=== PATIENT | male | born 1955 | race Caucasian/White ===

== ENCOUNTER 2018-05-04 16:39 | Observation (INO) ==
[2018-05-04 17:25] LABS: Baso % (Auto) 0.3 % (0.0-2.0); Eos % (Auto) 0.7 % (0.0-4.0); Hemoglobin 14.7 gm/dL (13.0-17.0); Lymph # (Auto) 1.7 th/mm3 (1.0-4.8); Lymph % (Auto) 24.5 % (9.0-44.0); Mean Corpuscular HGB Conc 33.3 % (32.0-36.0); Mean Corpuscular Volume 87.1 fL (80.0-100.0); Mean Platelet Volume 8.8 fL (7.0-11.0); Mono # (Auto) 0.5 th/mm3 (0.0-0.9); Mono % (Auto) 7.4 % (0.0-8.0); Neut # (Auto) 4.6 th/mm3 (1.8-7.7); Neut % (Auto) 67.1 % (16.0-70.0); Platelet Count 223 th/mm3 (150-450); Red Blood Count 5.05 mil/mm3 (4.50-5.90); Red Cell Distribution Width 14.8 % (11.6-17.2); White Blood Count 6.9 th/mm3 (4.0-11.0)
[2018-05-04 17:34] LABS: Activated Partial Thrombo Time 32.1 sec (24.3-30.1); INR 1.1 Ratio; Prothrombin Time 11.1 sec (9.8-11.6)
--- NOTE | 2018-05-04 17:38 | ED ---
HPI General Chief Complaint: Chest Pain Stated Complaint: chest pain/evac Time Seen by Provider: 05/04/18 17:06 Source: patient History of Present Illness HPI narrative: 62-year-old male presents with central chest pain and shortness of breath with exertion. He states he has been experiencing this intermittently over the past 6 months. He states the past couple of days have gotten worse. He denies prior workup for this. He denies taking an aspirin yet. He denies other modifying factors. His pain is currently resolved. He denies prior cardiac workup or following with a design analyst. complaint: chest pain Complete Quality Measures for STEMI Alert Patients Onset (ago): day(s) Duration: intermittent Onset: during exertion Pain location: left chest Severity: mild Quality: dull Pain radiation: none Relieving factors: rest Exacerbating factors: exertion Treatments prior to arrival chest pain: none Related Data Home Medications Medication Instructions Recorded Confirmed buspirone 5 mg PO BID 05/04/18 05/04/18 sertraline 50 mg PO DAILY 05/04/18 05/04/18 Allergies Allergy/AdvReac Type Severity Reaction Status Date / Time No Known Allergies Allergy Unverified 05/04/18 16:54 Review of Systems ROS Unobtainable All other systems reviewed negative except as stated in HPI [facility] Medical History Medical History Anxiety (Acute) COPD (chronic obstructive pulmonary disease) (Acute) Depression (Acute) Surgical History Surgical History H/O hand surgery (Acute) Hx of tonsillectomy (Acute) Social History Social History Substance History: No History of Abuse Second Hand Smoke Exposure: Yes Smoking Status: Current some day smoker Tobacco Type: Cigars How Often Do You Have a Drink Containing Alcohol: 2 to 4 times a month Recent Travel in [facility] within the Last 8 Weeks: No Recent Out of Country Travel within the Last 8 Weeks: No Immunization History Tetanus Immunization: >5 Years Hx Influenza Vaccine This Season: No Exam Narrative Exam Narrative: GENERAL: 62 y/o male in no apparent distress SKIN: Focused skin assessment warm/dry. HEAD: Atraumatic. Normocephalic. EYES: Pupils equal and round. No scleral icterus. No injection or drainage. ENT: No nasal bleeding or discharge. Mucous membranes pink and moist. NECK: Trachea midline. CARDIOVASCULAR: Regular rate and rhythm. RESPIRATORY: No accessory muscle use. Clear to auscultation. Breath sounds equal bilaterally. GASTROINTESTINAL: Abdomen soft, non-tender, nondistended. MUSCULOSKELETAL: No obvious deformities. No clubbing. No cyanosis. NEUROLOGICAL: Awake and alert. No obvious cranial nerve deficits. Motor grossly within normal limits. Normal speech Course Consultations Consultation #1: The patient's case including history, pertinent physical examination findings, and laboratory studies were discussed with Dr. Paredes. It was agreed that the patient would be admitted to the hospitalist service. Time: 20:24 Initial Documented Vital Signs Pulse Rate 103 H 05/04/18 16:55 Respiratory Rate 20 05/04/18 16:55 Blood Pressure 145/67 H 05/04/18 16:55 Pulse Oximetry 96 05/04/18 16:55 Last Documented Vital Signs Temperature 98.0 F 05/05/18 08:00 Pulse Rate 84 05/05/18 08:00 Respiratory Rate 16 05/05/18 08:00 Blood Pressure 117/66 05/05/18 08:00 Pulse Oximetry 97 05/05/18 08:00 Sign Out Sign Out Data: Patient Sign Out occurred on 05/04/18 at 19:19. Patient's care was discussed, and care was transferred from Bridgette Wood MD to Marilin Luna MD. Sign Out Comment: ct pending, will need admit for chest pain after results Last updated by Bridgette Wood MD at 05/04/18 18:51 Post-Handoff Eval: During the course of the patient's emergency department visit, the patient's history, examination, and differential diagnosis were reviewed with the patient. The patient was placed on a seismic prospecting supervisor with oximetry and frequent blood pressure monitoring. The patient had IV access obtained and blood work sent for analysis. The patient's case was checked out to me by Dr. Wood. Please see her initial history and physical. The patient's case was checked out to me at the conclusion of her shift. A CTA of the chest was ordered to both evaluate for possible underlying pulmonary embolism as a cause of the patient's chest pain and shortness of breath with exertion. The CTA came back as showing no evidence of pulmonary embolism, 7.1 cm left upper lobe mass consistent with bronchogenic carcinoma. No appreciable adenopathy, severe emphysematous changes. The patient will be admitted to the hospital for continued evaluation and treatment of chest pain, chest pressure, shortness of breath with exertion and underlying lung mass. The patient's results were discussed with the patient, including the plan of care. I explained that further testing and/ or monitoring is indicated based on the patient's history, examination, and/ or laboratory findings. Therefore, I recommended admission for additional evaluation. The patient expressed understanding and was agreeable with this plan. The patient was admitted to the hospital in guarded condition and sent to a bed under the care of [facility] service. Medical Decision Making MDM Narrative Medical decision making narrative: Will check blood work, imaging and dose with aspirin and nitroglycerin as needed and reevaluate Differential Diagnosis Differential Diagnosis: cardiac, musculoskeletal, gastritis Lab Data Lab results reviewed: Yes I reviewed the patient's lab results. Result diagrams: 05/05/18 04:20 05/05/18 04:20 Lab Results 05/04/18 05/04/18 05/04/18 Range/Units 17:16 17:16 17:16 WBC 6.9 (4.0-11.0) th/mm3 RBC 5.05 (4.50-5.90) mil/mm3 Hgb 14.7 (13.0-17.0) gm/dL Hct 44.0 (39.0-51.0) % MCV 87.1 (80.0-100.0) fL MCH 29.0 (27.0-34.0) pg MCHC 33.3 (32.0-36.0) % RDW 14.8 (11.6-17.2) % Plt Count 223 (150-450) th/mm3 MPV 8.8 (7.0-11.0) fL Neut % (Auto) 67.1 (16.0-70.0) % Lymph % (Auto) 24.5 (9.0-44.0) % Brantley % (Auto) 7.4 (0.0-8.0) % Eos % (Auto) 0.7 (0.0-4.0) % Baso % (Auto) 0.3 (0.0-2.0) % Neut # (Auto) 4.6 (1.8-7.7) th/mm3 Lymph # (Auto) 1.7 (1.0-4.8) th/mm3 Brantley # (Auto) 0.5 (0.0-0.9) th/mm3 Eos # (Auto) 0.0 (0.0-0.4) th/mm3 Baso # (Auto) 0.0 (0.0-0.2) th/mm3 WBC Differential . Differential Comment Auto diff final PT 11.1 (9.8-11.6) sec INR 1.1 Ratio APTT 32.1 H (24.3-30.1) sec D-Dimer Quant (PE/DVT) (0.00-0.50) mg/L FEU Sodium 141 (136-145) meq/L Potassium 4.0 (3.5-5.1) meq/L Chloride 105 (98-107) meq/L Carbon Dioxide 27.3 (21.0-32.0) meq/L Anion Gap 9 (5-15) meq/L BUN 11 (7-18) mg/dL Creatinine 0.95 (0.60-1.30) mg/dL Estimated GFR 80 L (>89) mL/min Random Glucose 120 H (74-106) mg/dL Calcium 9.0 (8.5-10.1) mg/dL Magnesium 2.2 (1.5-2.5) mg/dL Total Bilirubin 0.3 (0.2-1.0) mg/dL AST 16 (15-37) U/L ALT 21 (12-78) U/L Alkaline Phosphatase 116 (45-117) U/L Total Creatine Kinase 99 (39-308) U/L Troponin I Less than 0.02 L (0.02-0.05) ng/mL B-Natriuretic Peptide (0-100) pg/mL Total Protein 7.7 (6.4-8.2) g/dL Albumin 3.6 (3.4-5.0) g/dL Lipase 100 (73-393) U/L 05/04/18 05/04/18 05/05/18 Range/Units 17:16 17:16 04:20 WBC 7.1 (4.0-11.0) th/mm3 RBC 4.93 (4.50-5.90) mil/mm3 Hgb 14.1 (13.0-17.0) gm/dL Hct 43.0 (39.0-51.0) % MCV 87.2 (80.0-100.0) fL MCH 28.7 (27.0-34.0) pg MCHC 32.9 (32.0-36.0) % RDW 14.7 (11.6-17.2) % Plt Count 196 (150-450) th/mm3 MPV 8.7 (7.0-11.0) fL Neut % (Auto) 58.3 (16.0-70.0) % Lymph % (Auto) 30.3 (9.0-44.0) % Brantley % (Auto) 9.5 H (0.0-8.0) % Eos % (Auto) 1.5 (0.0-4.0) % Baso % (Auto) 0.4 (0.0-2.0) % Neut # (Auto) 4.1 (1.8-7.7) th/mm3 Lymph # (Auto) 2.1 (1.0-4.8) th/mm3 Brantley # (Auto) 0.7 (0.0-0.9) th/mm3 Eos # (Auto) 0.1 (0.0-0.4) th/mm3 Baso # (Auto) 0.0 (0.0-0.2) th/mm3 WBC Differential . Differential Comment Auto diff final PT (9.8-11.6) sec INR Ratio APTT (24.3-30.1) sec D-Dimer Quant (PE/DVT) 0.29 (0.00-0.50) mg/L FEU Sodium (136-145) meq/L Potassium (3.5-5.1) meq/L Chloride (98-107) meq/L Carbon Dioxide (21.0-32.0) meq/L Anion Gap (5-15) meq/L BUN (7-18) mg/dL Creatinine (0.60-1.30) mg/dL Estimated GFR (>89) mL/min Random Glucose (74-106) mg/dL Calcium (8.5-10.1) mg/dL Magnesium (1.5-2.5) mg/dL Total Bilirubin (0.2-1.0) mg/dL AST (15-37) U/L ALT (12-78) U/L Alkaline Phosphatase (45-117) U/L Total Creatine Kinase (39-308) U/L Troponin I (0.02-0.05) ng/mL B-Natriuretic Peptide 7 (0-100) pg/mL Total Protein (6.4-8.2) g/dL Albumin (3.4-5.0) g/dL Lipase (73-393) U/L 05/05/18 Range/Units 04:20 WBC (4.0-11.0) th/mm3 RBC (4.50-5.90) mil/mm3 Hgb (13.0-17.0) gm/dL Hct (39.0-51.0) % MCV (80.0-100.0) fL MCH (27.0-34.0) pg MCHC (32.0-36.0) % RDW (11.6-17.2) % Plt Count (150-450) th/mm3 MPV (7.0-11.0) fL Neut % (Auto) (16.0-70.0) % Lymph % (Auto) (9.0-44.0) % Brantley % (Auto) (0.0-8.0) % Eos % (Auto) (0.0-4.0) % Baso % (Auto) (0.0-2.0) % Neut # (Auto) (1.8-7.7) th/mm3 Lymph # (Auto) (1.0-4.8) th/mm3 Brantley # (Auto) (0.0-0.9) th/mm3 Eos # (Auto) (0.0-0.4) th/mm3 Baso # (Auto) (0.0-0.2) th/mm3 WBC Differential Differential Comment PT (9.8-11.6) sec INR Ratio APTT (24.3-30.1) sec D-Dimer Quant (PE/DVT) (0.00-0.50) mg/L FEU Sodium 141 (136-145) meq/L Potassium 3.7 (3.5-5.1) meq/L Chloride 106 (98-107) meq/L Carbon Dioxide 24.9 (21.0-32.0) meq/L Anion Gap 10 (5-15) meq/L BUN 13 (7-18) mg/dL Creatinine 0.97 (0.60-1.30) mg/dL Estimated GFR 78 L (>89) mL/min Random Glucose 96 (74-106) mg/dL Calcium 9.0 (8.5-10.1) mg/dL Magnesium (1.5-2.5) mg/dL Total Bilirubin 0.5 (0.2-1.0) mg/dL AST 15 (15-37) U/L ALT 17 (12-78) U/L Alkaline Phosphatase 103 (45-117) U/L Total Creatine Kinase (39-308) U/L Troponin I (0.02-0.05) ng/mL B-Natriuretic Peptide (0-100) pg/mL Total Protein 7.1 D (6.4-8.2) g/dL Albumin 3.3 L (3.4-5.0) g/dL Lipase (73-393) U/L Imaging Data Attestation: I personally reviewed and interpreted this imaging study as follows : Radiologist's impression: ITS Impressions Chest X-Ray 05/04/18 17:07 CONCLUSION: Left apical opacity as described above. Neoplasm is not excluded. CT scan is recommended for further evaluation if clinically indicated. Chest CTA 05/04/18 17:51 CONCLUSION: 1. No pulmonary emboli. 2. 7.1 cm left upper lobe mass consistent with bronchogenic carcinoma. No appreciable adenopathy. 3. Severe emphysematous changes. Discharge Plan Discharge Disposition Patient Disposition: 30 Still Patient Discharge Details Discharge Problem: Chest pain Physicians Team ED Provider: Marilin Luna Primary Care Provider: Primary Care Maribell Wood Attending Provider: Frida Lancaster Other Providers: Gaston Feldman Discharge Interventions Interventions: ED Discharge Assessment Last Done: 05/04/18 22:27 Status ED Status: Left Department Discharge Information Discharge Date/Time: 05/04/18 22:28
--- NOTE | 2018-05-04 17:45 | XR ---
EXAM DATE: 05/04/2018 5:41 PM EDT AGE/SEX: 62 years / Male INDICATIONS: Short of breath, chest pain. CLINICAL DATA: This is the patient's initial encounter. Patient reports that signs and symptoms have been present for 1 day and indicates a pain score of 3/10. MEDICAL/SURGICAL HISTORY: None. None. COMPARISON: No prior exams available for comparison. FINDINGS: There is increased opacity in the left apex. This is atypical for pneumonia and underlying mass lesio n is not excluded. CT scan is recommended for further evaluation if clinically indicated. No pleural effusions are identified. The cardiac silhouette is normal in transverse diameter. CONCLUSION: Left apical opacity as described above. Neoplasm is not excluded. CT scan is recommended for further evaluation if clinically indicated. Electronically signed by: Eros Zarate MD 05/04/2018 5:43 PM EDT
[2018-05-04 17:52] LABS: Alanine Aminotransferase 21 U/L (12-78); Albumin 3.6 g/dL (3.4-5.0); Anion Gap 9 meq/L (5-15); Aspartate Aminotransferase 16 U/L (15-37); Blood Urea Nitrogen 11 mg/dL (7-18); Carbon Dioxide 27.3 meq/L (21.0-32.0); Chloride 105 meq/L (98-107); Glomerular Filtration Rate 80 mL/min (>89); Glucose,Random 120 mg/dL (74-106); Lipase 100 U/L (73-393); Magnesium 2.2 mg/dL (1.5-2.5); Sodium 141 meq/L (136-145)
[2018-05-04 17:56] LABS: Alkaline Phosphatase 116 U/L (45-117); Total Protein 7.7 g/dL (6.4-8.2)
[2018-05-04 18:00] LABS: Creatine Kinase 99 U/L (39-308)
[2018-05-04] MEDS ORDERED: Bisacodyl 10 MG Supp RECTAL PRN (21:16)
[2018-05-04] MEDS ORDERED: Temazepam 15 MG Capsule PO PRN (21:16)
--- NOTE | 2018-05-04 21:26 | ECG ---
Date Performed: 05/04/2018 Time Performed: 16:57:24 PTAGE: 62 years EKG: SINUS TACHYCARDIA WITH SHORT MD INTERVAL ABNORMAL RHYTHM ECG NO PREVIOUS TRACING DOCTOR: Luis Gaston Interpretating Date/Time 05/04/2018 21:26:12
--- NOTE | 2018-05-05 04:35 | P.HPIM ---
History of Present Illness Primary Care Physician: No Primary Care Physician History of Present Illness: 62-year-old male with a history of depression, anxiety, tobacco abuse who follows at the [place] [facility], presents with a 6 month history of gradually worsening dull substernal nonradiating chest pressure with exertion. Worsening over the past several days, now with only moderate increase in activity. Patient reports chronic shortness of breath, does not feel that this has worsened significantly.. Patient denies any history of heart disease. Depression and anxiety Patient reports chronic shortness of breath, thinks he has COPD. Right hand tendon surgery Left facial surgery One half pack per day since his teenager years Family history reviewed with patient and found to be currently noncontributory. - Inpatient Certification If this patient has been admitted as an Inpatient: I certify that the inpatient services were ordered in accordance with Medicare regulations governing the order. This includes certification that hospital inpatient services are reasonable and necessary and in the case of services not specified as inpatient-only under 42 CFR 419.22(n), that they are appropriately provided as inpatient services in accordance to with the 2-midnight benchmark under 43 CFR 412.3(e) Review of Systems All other systems reviewed negative except as stated in HPI PMFSH - History History Provided By: Patient - Medical History Medical History: Medical History (Last Updated 05/04/18 @ 23:07 by Annemarie Bundy RN) Anxiety COPD (chronic obstructive pulmonary disease) Depression - Surgical History Surgical History: Surgical History (Last Updated 05/04/18 @ 23:07 by Annemarie Bundy RN) H/O hand surgery Hx of tonsillectomy - Tobacco History Second Hand Smoke Exposure: Yes Tobacco Use In Past 30 Days: Yes Smoking Status: Current some day smoker Tobacco Type: Cigars - Alcohol History How Often Do You Have a Drink Containing Alcohol: 2 to 4 times a month - Substance Use History Substance History: No History of Abuse - Travel History Recent Travel in the [place] Within the Last 8 Weeks: No Recent Travel Out of the Country Within the Last 8 Weeks: No - Immunization History Tetanus Immunization: >5 Years Hx Influenza Vaccine This Season: No Medications and Allergies Active Medications: Active Medications Al Hydroxide/Mg Hydroxide (Milk Of Doris Liq) 30 ml PO Q12H PRN PRN Reason: Mild Constipation Albuterol (Duoneb Neb (Tomas)) 1 ampul NEB Q6HR NEB TOMAS Last Admin: 05/05/18 03:48 Dose: Not Given Azithromycin (Zithromax) 500 mg PO DAILY TOMAS Stop: 05/07/18 09:01 Bisacodyl (Dulcolax Supp) 10 mg RECTAL DAILY PRN PRN Reason: SEVERE CONSITIPATION Ipratropium Elliott (Atrovent Neb) 0.5 mg NEB Q6HR NEB PRN PRN Reason: SHORTNESS OF BREATH Lactulose (Lactulose Liq) 30 ml PO DAILY PRN PRN Reason: SEVERE CONSITIPATION Prednisone (Deltasone) 40 mg PO DAILY [facility] Sennosides (Senokot) 17.2 mg PO Q12H PRN PRN Reason: Moderate Constipation Sodium Chloride (Ns Flush) 2 ml IV.FLUSH UNSCH PRN PRN Reason: FLUSH AFTER USING IV ACCESS Sodium Chloride (Ns Flush) 2 ml IV.FLUSH BID TOMAS Sodium Chloride (Ns Flush) 2 ml IV.FLUSH PRN PRN PRN Reason: FLUSH AFTER USING IV ACCESS Temazepam (Restoril) 15 mg PO HS PRN PRN Reason: INSOMNIA Allergies Allergy/AdvReac Type Severity Reaction Status Date / Time No Known Allergies Allergy Unverified 05/04/18 16:54 Home Medications Medication Instructions Recorded Confirmed Type buspirone 5 mg PO BID 05/04/18 05/04/18 History sertraline 50 mg PO DAILY 05/04/18 05/04/18 History Exam Vital signs: Vital Signs 05/04/18 16:55 05/04/18 18:03 05/04/18 18:14 Temperature Pulse Rate 103 H 102 H 97 H Respiratory Rate 20 19 17 Blood Pressure 145/67 H 145/67 H 120/62 Pulse Oximetry 96 94 L 98 05/04/18 20:15 05/04/18 21:43 05/04/18 21:51 Temperature Pulse Rate 86 87 Respiratory Rate 18 18 Blood Pressure 130/72 122/63 Pulse Oximetry 97 97 05/04/18 23:02 05/05/18 00:00 05/05/18 03:21 Temperature 98.1 F 98.0 F 97.7 F Pulse Rate 96 H 96 H 83 Respiratory Rate 18 16 18 Blood Pressure 142/72 H 116/68 102/55 L Pulse Oximetry 96 95 93 L 05/05/18 03:42 05/05/18 03:51 Temperature Pulse Rate 83 95 H Respiratory Rate 18 Blood Pressure Pulse Oximetry Intake & Output 05/04/18 05/04/18 05/05/18 06:59 18:59 06:59 Weight 70.76 kg 70.76 kg Other: Date of Last Bowel Movement 05/04/18 Weight On Admission 70.76 kg Narrative: GENERAL: Lying in bed. Appears comfortable. Alert and oriented 3. SKIN: Warm and dry. HEAD: Atraumatic. Normocephalic. EYES: Pupils equal and round. No scleral icterus. No injection or drainage. ENT: No nasal bleeding or discharge. Mucous membranes pink and moist. NECK: Trachea midline. No JVD. CARDIOVASCULAR: Regular rate and rhythm. RESPIRATORY: No accessory muscle use. Wheezing on forced expiration. Breath sounds equal bilaterally. GASTROINTESTINAL: Abdomen soft, non-tender, nondistended. Hepatic and splenic margins not palpable. MUSCULOSKELETAL: Extremities without clubbing, cyanosis, or edema. No obvious deformities. NEUROLOGICAL: Awake and alert. No obvious cranial nerve deficits. Motor grossly within normal limits. Five out of 5 muscle strength in the arms and legs. Normal speech. PSYCHIATRIC: Appropriate mood and affect; insight and judgment normal. Results - Labs CBC & Chem 7: 05/04/18 17:16 05/04/18 17:16 Labs: Short CBC 05/04/18 Range/Units 17:16 WBC 6.9 (4.0-11.0) th/mm3 Hgb 14.7 (13.0-17.0) gm/dL Hct 44.0 (39.0-51.0) % Plt Count 223 (150-450) th/mm3 [facility] 05/04/18 17:16 Sodium 141 Potassium 4.0 Chloride 105 Carbon Dioxide 27.3 BUN 11 Creatinine 0.95 Calcium 9.0 Cardiac Enzymes 05/04/18 Range/Units 17:16 Total Creatine Kinase 99 (39-308) U/L Troponin I Less than 0.02 L (0.02-0.05) ng/mL Liver Function 05/04/18 Range/Units 17:16 Total Bilirubin 0.3 (0.2-1.0) mg/dL AST 16 (15-37) U/L ALT 21 (12-78) U/L Alkaline Phosphatase 116 (45-117) U/L Albumin 3.6 (3.4-5.0) g/dL - Imaging Impressions Chest X-Ray 05/04/18 17:07 CONCLUSION: Left apical opacity as described above. Neoplasm is not excluded. CT scan is recommended for further evaluation if clinically indicated. Chest CTA 05/04/18 17:51 CONCLUSION: 1. No pulmonary emboli. 2. 7.1 cm left upper lobe mass consistent with bronchogenic carcinoma. No appreciable adenopathy. 3. Severe emphysematous changes. Caprini VTE Risk Assessment Caprini VTE Risk Assessment: Moderate/High Risk (score >= 2) Caprini Risk Assessment Model: Point Value = 1 Point Value = 2 Point Value = 3 Point Value = 5 Age 41-60 Minor surgery BMI > 25 kg/m2 Swollen legs Varicose veins or History of unexplained or recurrent spontaneous Oral contraceptives or hormone replacement Sepsis (< 1 month) Serious lung disease, including pneumonia (< 1 month) Abnormal pulmonary function Acute myocardial infarction Congestive heart failure (< 1 month) History of inflammatory bowel disease Medical patient at bed rest Age 61-74 Arthroscopic surgery Major open surgery (> 45 min) Laparoscopic surgery (> 45 min) Malignancy Confined to bed (> 72 hours) Immobilizing plaster cast Central venous access Age >= 75 History of VTE Family history of VTE Factor V Leiden Prothrombin [id number] Lupus anticoagulant Anticardiolipin antibodies Elevated serum homocysteine Heparin-induced thrombocytopenia Other congenital or acquired thrombophilia Stroke (< 1 month) Elective arthroplasty Hip, pelvis, or leg fracture Acute spinal cord injury (< 1 month) Prophylaxis Regimen: Total Risk Factor Score Risk Level Prophylaxis Regimen 0-1 Low Early ambulation 2 Moderate Order ONE of the following: *Sequential Compression Device (SCD) *Heparin 5000 units SQ BID 3-4 Higher Order ONE of the following medications: *Heparin 5000 units SQ TID *Enoxaparin/Lovenox 40 mg SQ daily (WT < 150 kg, CrCl > 30 mL/min) *Enoxaparin/Lovenox 30 mg SQ daily (WT < 150 kg, CrCl > 10-29 mL/min) *Enoxaparin/Lovenox 30 mg SQ BID (WT < 150 kg, CrCl > 30 mL/min) AND/OR *Sequential Compression Device (SCD) 5 or more Highest Order ONE of the following medications: *Heparin 5000 units SQ TID (Preferred with Epidurals) *Enoxaparin/Lovenox 40 mg SQ daily (WT < 150 kg, CrCl > 30 mL/min) *Enoxaparin/Lovenox 30 mg SQ daily (WT < 150 kg, CrCl > 10-29 mL/min) *Enoxaparin/Lovenox 30 mg SQ BID (WT < 150 kg, CrCl > 30 mL/min) AND *Sequential Compression Device (SCD) Assessment and Plan - Plan //Unstable angina = Chest pain on exertion worsening over the 2 months. = No acute changes on EKG. = Trend EKGs and troponins, if negative, stress = Due to unstable angina will order pharmacologic stress //7 cm left upper lobe chest mass. Suspected carcinoma. = Patient requests biopsy here, after which he can follow-up with primary care to go over results. Have ordered CT-guided biopsy. //Suspected COPD exacerbation -Patient with severe emphysematous changes on CT pulmonary angiogram. No evidence of pulmonary embolism. Will start on nebs, prednisone. Continue to monitor. //Tobacco use. Cessation counseling provided. Discussed Condition With: Patient, nurse, ED physician H&P: Quality - VTE Deep Vein Thrombosis/Pulmonary Embolism Present on Admission: No
[2018-05-05 05:13] LABS: Baso % (Auto) 0.4 % (0.0-2.0); Eos # (Auto) 0.1 th/mm3 (0.0-0.4); Eos % (Auto) 1.5 % (0.0-4.0); Hemoglobin 14.1 gm/dL (13.0-17.0); Lymph # (Auto) 2.1 th/mm3 (1.0-4.8); Lymph % (Auto) 30.3 % (9.0-44.0); Mean Corpuscular HGB Conc 32.9 % (32.0-36.0); Mean Corpuscular Hemoglobin 28.7 pg (27.0-34.0); Mean Corpuscular Volume 87.2 fL (80.0-100.0); Mean Platelet Volume 8.7 fL (7.0-11.0); Mono # (Auto) 0.7 th/mm3 (0.0-0.9); Mono % (Auto) 9.5 % (0.0-8.0); Neut # (Auto) 4.1 th/mm3 (1.8-7.7); Neut % (Auto) 58.3 % (16.0-70.0); Platelet Count 196 th/mm3 (150-450); Red Blood Count 4.93 mil/mm3 (4.50-5.90); Red Cell Distribution Width 14.7 % (11.6-17.2); White Blood Count 7.1 th/mm3 (4.0-11.0)
[2018-05-05 05:45] LABS: Albumin 3.3 g/dL (3.4-5.0); Anion Gap 10 meq/L (5-15); Aspartate Aminotransferase 15 U/L (15-37); Blood Urea Nitrogen 13 mg/dL (7-18); Carbon Dioxide 24.9 meq/L (21.0-32.0); Chloride 106 meq/L (98-107); Glomerular Filtration Rate 78 mL/min (>89); Potassium 3.7 meq/L (3.5-5.1); Sodium 141 meq/L (136-145)
[2018-05-05 05:46] LABS: Glucose,Random 96 mg/dL (74-106)
[2018-05-05 05:52] LABS: Alanine Aminotransferase 17 U/L (12-78); Alkaline Phosphatase 103 U/L (45-117); Total Protein 7.1 g/dL (6.4-8.2)
--- NOTE | 2018-05-05 09:38 | P.PN ---
Subjective Interval history: Follow-up visit tobacco abuse, pulmonary mass, chest pain. Patient seen and examined today. Reports he is doing okay. States that the chest pain continues but is not worsening. States he has no shortness of breath or dyspnea right now. No acute issues overnight. Denies SOB/ dyspnea. Denies palpitations, headaches, dizziness. Denies fevers, chills, n/v/d. Denies dysuria. Physical Exam Vital signs: Vital Signs 05/04/18 16:55 05/04/18 18:03 05/04/18 18:14 Temperature Pulse Rate 103 H 102 H 97 H Respiratory Rate 20 19 17 Blood Pressure 145/67 H 145/67 H 120/62 Pulse Oximetry 96 94 L 98 05/04/18 20:15 05/04/18 21:43 05/04/18 21:51 Temperature Pulse Rate 86 87 Respiratory Rate 18 18 Blood Pressure 130/72 122/63 Pulse Oximetry 97 97 05/04/18 23:02 05/05/18 00:00 05/05/18 03:21 Temperature 98.1 F 98.0 F 97.7 F Pulse Rate 96 H 96 H 83 Respiratory Rate 18 16 18 Blood Pressure 142/72 H 116/68 102/55 L Pulse Oximetry 96 95 93 L 05/05/18 03:42 05/05/18 03:51 05/05/18 08:00 Temperature 98.0 F Pulse Rate 83 95 H 84 Respiratory Rate 18 16 Blood Pressure 117/66 Pulse Oximetry 97 Intake & Output 05/04/18 05/05/18 05/05/18 18:59 06:59 18:59 Weight 70.76 kg 70.76 kg Other: # Voids 1 Date of Last Bowel Movement 05/04/18 Weight On Admission 70.76 kg Narrative: GENERAL: This is a well-nourished, well-developed patient, in no apparent distress. SKIN: Warm and dry HEENT: Normocephalic. Pupils equal round and reactive. Nose without bleeding. Airway patent. NECK: Trachea midline. No JVD. Supple. CARDIOVASCULAR: Regular rate and rhythm without murmurs, gallops, or rubs. RESPIRATORY: Coarse breath sounds throughout GASTROINTESTINAL: Abdomen soft, non-tender, nondistended. Bowel Sounds normoactive x4. MUSCULOSKELETAL: Extremities without clubbing, cyanosis, or edema. NEUROLOGICAL: Awake and alert. Oriented to place, person. Moves all extremities. Normal speech. Results - Labs CBC & Chem 7: 05/05/18 04:20 05/05/18 04:20 Laboratory Results - last 24 hr 05/04/18 05/04/18 05/04/18 17:16 17:16 17:16 WBC 6.9 RBC 5.05 Hgb 14.7 Hct 44.0 MCV 87.1 MCH 29.0 MCHC 33.3 RDW 14.8 Plt Count 223 MPV 8.8 Neut % (Auto) 67.1 Lymph % (Auto) 24.5 [place] % (Auto) 7.4 Eos % (Auto) 0.7 Baso % (Auto) 0.3 Neut # (Auto) 4.6 Lymph # (Auto) 1.7 [place] # (Auto) 0.5 Eos # (Auto) 0.0 Baso # (Auto) 0.0 WBC Differential . Differential Comment Auto diff final PT 11.1 INR 1.1 APTT 32.1 H D-Dimer Quant (PE/DVT) Sodium 141 Potassium 4.0 Chloride 105 Carbon Dioxide 27.3 Anion Gap 9 BUN 11 Creatinine 0.95 Estimated GFR 80 L Random Glucose 120 H Calcium 9.0 Magnesium 2.2 Total Bilirubin 0.3 AST 16 ALT 21 Alkaline Phosphatase 116 Total Creatine Kinase 99 Troponin I Less than 0.02 L B-Natriuretic Peptide Total Protein 7.7 Albumin 3.6 Lipase 100 05/04/18 05/04/18 05/05/18 17:16 17:16 04:20 WBC 7.1 RBC 4.93 Hgb 14.1 Hct 43.0 MCV 87.2 MCH 28.7 MCHC 32.9 RDW 14.7 Plt Count 196 MPV 8.7 Neut % (Auto) 58.3 Lymph % (Auto) 30.3 [place] % (Auto) 9.5 H Eos % (Auto) 1.5 Baso % (Auto) 0.4 Neut # (Auto) 4.1 Lymph # (Auto) 2.1 [place] # (Auto) 0.7 Eos # (Auto) 0.1 Baso # (Auto) 0.0 WBC Differential . Differential Comment Auto diff final PT INR APTT D-Dimer Quant (PE/DVT) 0.29 Sodium Potassium Chloride Carbon Dioxide Anion Gap BUN Creatinine Estimated GFR Random Glucose Calcium Magnesium Total Bilirubin AST ALT Alkaline Phosphatase Total Creatine Kinase Troponin I B-Natriuretic Peptide 7 Total Protein Albumin Lipase 05/05/18 04:20 WBC RBC Hgb Hct MCV MCH MCHC RDW Plt Count MPV Neut % (Auto) Lymph % (Auto) [place] % (Auto) Eos % (Auto) Baso % (Auto) Neut # (Auto) Lymph # (Auto) [place] # (Auto) Eos # (Auto) Baso # (Auto) WBC Differential Differential Comment PT INR APTT D-Dimer Quant (PE/DVT) Sodium 141 Potassium 3.7 Chloride 106 Carbon Dioxide 24.9 Anion Gap 10 BUN 13 Creatinine 0.97 Estimated GFR 78 L Random Glucose 96 Calcium 9.0 Magnesium Total Bilirubin 0.5 AST 15 ALT 17 Alkaline Phosphatase 103 Total Creatine Kinase Troponin I B-Natriuretic Peptide Total Protein 7.1 D Albumin 3.3 L Lipase - Imaging Impressions Chest X-Ray 05/04/18 17:07 CONCLUSION: Left apical opacity as described above. Neoplasm is not excluded. CT scan is recommended for further evaluation if clinically indicated. Chest CTA 05/04/18 17:51 CONCLUSION: 1. No pulmonary emboli. 2. 7.1 cm left upper lobe mass consistent with bronchogenic carcinoma. No appreciable adenopathy. 3. Severe emphysematous changes. Assessment and Plan - Plan 62-year-old male with a history of depression, anxiety, tobacco abuse who follows at the [facility], presents with a 6 month history of gradually worsening dull substernal nonradiating chest pressure with exertion. Unstable angina -Chest pain on exertion worsening over the 2 months. -No acute changes on EKG. -Trend EKGs and troponins negative. Plan for stress test - patient ate, will do avni. NPO after MN -Due to unstable angina will order pharmacologic stress 7 cm left upper lobe chest mass. Suspected carcinoma. -Have ordered CT-guided biopsy. -Pulmonary consult appreciate recommendations Suspected COPD exacerbation -Patient with severe emphysematous changes on CT pulmonary angiogram. No evidence of pulmonary embolism. -Will start on nebs, prednisone. -Symbicort -On azithromycin Tobacco use. Cessation counseling provided. Code Status: Full Code Discussed Condition With: Patient, nursing Discharge Planning: Plan to DC home post biopsy, clinically improved
[2018-05-05] MEDS: predniSONE 20 MG Tablet PO SCH (10:26)
[2018-05-05] MEDS: Azithromycin 250 MG Tablet PO SCH (10:27)
[2018-05-05] MEDS: Budesonide-Formoterol 160/4.5 MCG 6 GM Inhaler INH SCH ×2 (10:27→21:00)
--- NOTE | 2018-05-05 12:15 | MB ---
cc: Gaston Feldman MD DATE: 05/05/2018 REASON FOR CONSULTATION: Lung mass. HISTORY OF PRESENT ILLNESS: Mr. Garrison is a 62-year-old male who comes to the emergency room because of shortness of breath and chest pressure with exertion. Chest x-ray revealed a left apical opacity, underlying malignancy suspect measuring about 7 cm. I am asked to see the patient at this time for same. He does have half a block dyspnea on exertion. No cough. No expectoration, fever or chills. He does smoke cigars. PAST MEDICAL HISTORY: 1. COPD. 2. Mood disorder, namely depression. 3. History of T and A as a child. 4. Previous hand surgery. SOCIAL HISTORY: Smoked cigars for the last 30 years "[id number]", continues to smoke until the present. Drinks alcohol on occasion. FAMILY HISTORY: Noncontributory. MEDICATIONS: 1. Albuterol nebulizer. 2. Zithromax. 3. Prednisone 40 mg daily. ALLERGIES: NONE KNOWN TO MEDICATIONS. REVIEW OF SYSTEMS: A 12-point review of systems as per HPI and past history, otherwise negative. PHYSICAL EXAMINATION: GENERAL: The patient is alert. VITAL SIGNS: Temperature 98, pulse 90, respiration 18, blood pressure 140/70. HEENT: Unremarkable. Eyes without icterus. NECK: Without adenopathy, thyroid enlargement, central trachea. CHEST: Without dullness to percussion. Clear to auscultation. A few scattered rhonchi bilaterally. CARDIAC: PMI not appreciated. S1, S2 audible. No murmur. No rub. ABDOMEN: Lax, bowel sounds audible. EXTREMITIES: No clubbing, cyanosis, edema. LABORATORY DATA: White count 6.9, hemoglobin 14, hematocrit 44, platelets are 223,000. Sodium 141, potassium 4.0, BUN 11, creatinine 0.9. Chest x-ray 7 cm left upper lobe lung mass. IMPRESSION: 1. Lung mass, left upper lobe lung mass malignancy suspect. 2. Chronic obstructive pulmonary disease. 3. Chest discomfort, significance unclear. PLAN: The patient will need baseline pulmonary function, as well as arterial blood gas. A CT scan of the chest and a needle biopsy left upper lung would be appropriate as well. Bronchodilator therapy should be continued. Obviously[facility] to assure they wish to continue therapy with us here or they want to transfer to a [facility] facility. I do thank you for asking me to partake in Mr. Garrison's care. Gaston Feldman MD WWW/MARK , 11:56 AM , 12:14 PM
[2018-05-05 22:11] LABS: Creatine Kinase 85 U/L (39-308)
[2018-05-06 06:22] LABS: Hematocrit 39.4 % (39.0-51.0); Hemoglobin 13.2 gm/dL (13.0-17.0); Mean Corpuscular HGB Conc 33.6 % (32.0-36.0); Mean Corpuscular Hemoglobin 29.2 pg (27.0-34.0); Mean Platelet Volume 9.1 fL (7.0-11.0); Platelet Count 196 th/mm3 (150-450); Red Blood Count 4.53 mil/mm3 (4.50-5.90); Red Cell Distribution Width 14.4 % (11.6-17.2); White Blood Count 9.4 th/mm3 (4.0-11.0)
[2018-05-06] MEDS ORDERED: Lidocaine 1%/Epinephrine 1:100,000 Inj 20 ML Vial ONE (08:40)
[2018-05-06] MEDS ORDERED: fentaNYL Citrate Inj 250 MCG/5 ML Ampul ONE (08:56)
--- NOTE | 2018-05-06 09:15 | P.PN ---
Subjective Interval history: alert no distress Physical Exam Vital signs: Vital Signs 05/05/18 10:15 05/05/18 11:54 05/05/18 16:00 Temperature 98.1 F 98.5 F Pulse Rate 98 H 99 H 93 H Respiratory Rate 18 12 Blood Pressure 122/67 118/69 Pulse Oximetry 97 94 L 95 05/05/18 16:20 05/05/18 19:57 05/05/18 20:26 Temperature 98.2 F Pulse Rate 99 H 104 H 104 H Respiratory Rate 18 18 18 Blood Pressure 109/68 Pulse Oximetry 94 L 05/05/18 23:38 05/06/18 03:13 05/06/18 08:00 Temperature 98.2 F 98.0 F 97.6 F Pulse Rate 109 H 91 H 85 Respiratory Rate 18 18 18 Blood Pressure 110/69 114/65 120/68 Pulse Oximetry 95 96 96 Intake & Output 05/05/18 05/06/18 05/06/18 18:59 06:59 18:59 Intake Total 480 / 480 Balance 480 / 480 Intake: Oral 480 / 480 Other: # Voids 1 Narrative: GENERAL: This is a well-nourished, well-developed patient, in no apparent distress. SKIN: Warm and dry HEENT: Normocephalic. Pupils equal round and reactive. Nose without bleeding. Airway patent. NECK: Trachea midline. No JVD. Supple. CARDIOVASCULAR: Regular rate and rhythm without murmurs, gallops, or rubs. RESPIRATORY: Coarse breath sounds throughout GASTROINTESTINAL: Abdomen soft, non-tender, nondistended. Bowel Sounds normoactive x4. MUSCULOSKELETAL: Extremities without clubbing, cyanosis, or edema. NEUROLOGICAL: Awake and alert. Oriented to place, person. Moves all extremities. Normal speech. Results - Labs CBC & Chem 7: 05/06/18 05:40 05/05/18 04:20 Laboratory Results - last 24 hr 05/05/18 05/05/18 05/05/18 12:34 12:34 12:34 WBC RBC Hgb Hct MCV MCH MCHC RDW Plt Count MPV Creatine Kinase Cancelled Total Creatine Kinase 91 CK-MM (CK-3) % Cancelled CK-MB (CK-2) % Cancelled CK-BB (CK-1) % Cancelled Troponin I Less than 0.02 L 05/05/18 05/06/18 21:24 05:40 WBC 9.4 RBC 4.53 Hgb 13.2 Hct 39.4 MCV 87.0 MCH 29.2 MCHC 33.6 RDW 14.4 Plt Count 196 MPV 9.1 Creatine Kinase Total Creatine Kinase 85 CK-MM (CK-3) % CK-MB (CK-2) % CK-BB (CK-1) % Troponin I Less than 0.02 L Assessment and Plan - Assessment (1) Lung mass Code(s): R91.8 - Other nonspecific abnormal finding of lung field Status: Acute (2) Chest pain Code(s): R07.9 - Chest pain, unspecified Status: Acute - Plan for needle biopsy today (2) Chest pain Qualifiers: Chest pain type: unspecified Qualified Code(s): R07.9 - Chest pain, unspecified
--- NOTE | 2018-05-06 10:50 | XR ---
EXAM DATE: 05/06/2018 10:30 AM EDT AGE/SEX: 62 years / Male INDICATIONS: Post left lung biopsy. CLINICAL DATA: This is the patient's initial encounter. Patient reports that signs and symptoms have been present for 1 day and indicates a pain score of 0/10. MEDICAL/SURGICAL HISTORY: None. None. COMPARISON: [facility], CTA PULMONARY W CONTRAST W 3D, 05/04/2018. . FINDINGS: Left medial apical mass is again noted, unchanged. The lungs are otherwise clear. No effusion present . Cardiac contours are stable and satisfactory. No evidence of pneumothorax following biopsy. CONCLUSION: No pneumothorax Electronically signed by: Bret Gore MD 05/06/2018 10:49 AM EDT
[2018-05-06] MEDS: Azithromycin 250 MG Tablet PO SCH (11:24)
[2018-05-06] MEDS: Budesonide-Formoterol 160/4.5 MCG 6 GM Inhaler INH SCH (11:24)
[2018-05-06] MEDS: predniSONE 20 MG Tablet PO SCH (11:25)
[2018-05-06] MEDS ORDERED: Regadenoson Inj 0.4 MG/5 ML Syringe IV.PUSH ONE (13:25)
--- NOTE | 2018-05-06 14:40 | XR ---
EXAM DATE: 05/06/2018 2:36 PM EDT AGE/SEX: 62 years / Male INDICATIONS: Post left lung biopsy. CLINICAL DATA: This is the patient's initial encounter. Patient reports that signs and symptoms have been present for 1 day and indicates a pain score of 0/10. MEDICAL/SURGICAL HISTORY: None. None. COMPARISON: [facility], CHEST EXPIRATION ONLY, 05/06/2018. . FINDINGS: No significant pneumothorax. Redemonstration of mass in the left lung apex. Cardiomediastinal contour s are stable. Bony thorax is intact. CONCLUSION: 1. No significant pneumothorax status post left apical lung mass biopsy. Electronically signed by: Carlitos Ambrosio MD 05/06/2018 2:39 PM EDT
--- NOTE | 2018-05-06 14:46 | NM ---
EXAM DATE: 05/06/2018 2:37 PM EDT AGE/SEX: 62 years / Male INDICATIONS:Angina. . Substernal chest pain for six months. CLINICAL DATA: This is the patient's initial encounter. Patient reports that signs and symptoms have been present for 4 - 6 months and indicates a pain score of 3/10. MEDICAL/SURGICAL HISTORY: Chronic obstructive pulmonary disease. Tonsillectomy. Right hand. COMPARISON: No prior exams available for comparison. DOSE: 8.4 mCi Tc 99m Myoview at rest 26.4 mCi [id number] at stress 0.4 mg Lexiscan STRESS SYMPTOMS: None. EJECTION FRACTION: 63 % TECHNIQUE: The patient underwent pharmacologic stress with infusion of prescribed dose. Continuous ECG tracing was monitored during stress. Gated SPECT imaging was performed after stress and conventi onal SPECT imaging was performed at rest. The examination was performed on a SPECT/CT scanner, both attenuation and non-corrected datasets were reviewed. FINDINGS: Distribution: The maximum perfused segment at stress is in the inferior wall. Perfusion Study: The pattern of perfusion at stress is within normal limits. Gated Study: There are intact wall motion and wall thickening without hypokinetic or dyskinetic segm ents. The ejection fraction is calculated at 63%. RISK CATEGORY: Low (<1% Annual Motality Rate) CONCLUSION: 1. No evidence to suggest ischemic myocardial changes. Electronically signed by: Les Duque MD 05/06/2018 2:45 PM EDT
--- NOTE | 2018-05-06 16:40 | P.PN ---
Subjective Interval history: Follow-up visit tobacco abuse, pulmonary mass, chest pain. Patient seen and examined today. Reports he is doing okay. States he just had his biopsy and stress test done. Patient still has mild chest pain, discomfort denies pain and discomfort. Denies SOB/ dyspnea. Denies palpitations, headaches, dizziness. Denies fevers, chills, n/v/d. Denies dysuria. Physical Exam Vital signs: Vital Signs 05/05/18 19:57 05/05/18 20:26 05/05/18 23:38 Temperature 98.2 F 98.2 F Pulse Rate 104 H 104 H 109 H Respiratory Rate 18 18 18 Blood Pressure 109/68 110/69 Pulse Oximetry 94 L 95 05/06/18 03:13 05/06/18 08:00 05/06/18 09:00 Temperature 98.0 F 97.6 F Pulse Rate 91 H 85 75 Respiratory Rate 18 18 Blood Pressure 114/65 120/68 Pulse Oximetry 96 96 05/06/18 10:00 05/06/18 10:15 05/06/18 10:45 Temperature 97.5 F L Pulse Rate 89 84 80 Respiratory Rate 18 18 20 Blood Pressure 113/72 104/63 111/69 Pulse Oximetry 91 L 91 L 92 L Intake & Output 05/05/18 05/06/18 05/06/18 18:59 06:59 18:59 Intake Total 480 / 480 Balance 480 / 480 Intake: Oral 480 / 480 Other: # Voids 1 Narrative: GENERAL: This is a well-nourished, well-developed patient, in no apparent distress. SKIN: Warm and dry HEENT: Normocephalic. Pupils equal round and reactive. Nose without bleeding. Airway patent. NECK: Trachea midline. No JVD. Supple. CARDIOVASCULAR: Regular rate and rhythm without murmurs, gallops, or rubs. RESPIRATORY: Coarse breath sounds throughout GASTROINTESTINAL: Abdomen soft, non-tender, nondistended. Bowel Sounds normoactive x4. MUSCULOSKELETAL: Extremities without clubbing, cyanosis, or edema. NEUROLOGICAL: Awake and alert. Oriented to place, person. Moves all extremities. Normal speech. Results - Labs CBC & Chem 7: 05/06/18 05:40 05/05/18 04:20 Laboratory Results - last 24 hr 05/05/18 05/06/18 21:24 05:40 WBC 9.4 RBC 4.53 Hgb 13.2 Hct 39.4 MCV 87.0 MCH 29.2 MCHC 33.6 RDW 14.4 Plt Count 196 MPV 9.1 Total Creatine Kinase 85 Troponin I Less than 0.02 L - Imaging Impressions Chest X-Ray 05/06/18 00:00 CONCLUSION: No pneumothorax Lung Biopsy CT 05/06/18 00:00 CONCLUSION: Uncomplicated CT guided biopsy of left upper lobe mass.. Myocardial Perfusion Scan Nuc Med 05/06/18 00:00 CONCLUSION: 1. No evidence to suggest ischemic myocardial changes. Chest X-Ray 05/06/18 13:00 CONCLUSION: 1. No significant pneumothorax status post left apical lung mass biopsy. Assessment and Plan - Plan 62-year-old male with a history of depression, anxiety, tobacco abuse who follows at the [facility], presents with a 6 month history of gradually worsening dull substernal nonradiating chest pressure with exertion. Unstable angina -Chest pain on exertion worsening over the 2 months. -No acute changes on EKG. -Trend EKGs and troponins negative. Stress test today. -No evidence to suggest ischemic myocardial changes. 7 cm left upper lobe chest mass. Suspected carcinoma. -Have ordered CT-guided biopsy, done -Pulmonary consult appreciate recommendations Suspected COPD exacerbation -Patient with severe emphysematous changes on CT pulmonary angiogram. No evidence of pulmonary embolism. -on nebs, prednisone. -Symbicort -On azithromycin Tobacco use. Cessation counseling provided. Code Status: Full Code Discussed Condition With: Patient, nursing Discharge Planning: Plan to [place] home post biopsy, clinically improved
--- NOTE | 2018-05-06 16:47 | P.DS ---
Date of admission: 05/04/18 20:55 Primary care physician: No Primary Care Physician Attending physician on discharge: Frida Lancaster Anticipated date of discharge: 05/06/18 Brief History from admission: 62-year-old male with a history of depression, anxiety, tobacco abuse who follows at the [facility], presents with a 6 month history of gradually worsening dull substernal nonradiating chest pressure with exertion. Worsening over the past several days, now with only moderate increase in activity. Patient reports chronic shortness of breath, does not feel that this has worsened significantly.. Patient denies any history of heart disease. Depression and anxiety Patient reports chronic shortness of breath, thinks he has COPD. Right hand tendon surgery Left facial surgery One half pack per day since his teenager years Family history reviewed with patient and found to be currently noncontributory. DS: Diagnosis - Discharge Diagnosis (1) Lung mass Status: Acute (2) Chest pain Status: Acute DS: Medications - Discharge Medications Prescriptions: albuterol sulfate 1 puff INHALATION Q4-6H PRN 30 Days #1 g PRN Reason: Shortness Of Breath Or Wheezing azithromycin 500 mg PO DAILY 3 Days #3 tab budesonide-formoterol [Symbicort] 1 puff INH BID #1 g prednisone 40 mg PO DAILY 5 Days #5 tab DS: Summary Hospital Course: 62-year-old male with a history of depression, anxiety, tobacco abuse who follows at the [facility], presents with a 6 month history of gradually worsening dull substernal nonradiating chest pressure with exertion. Chest pain on exertion worsening over the 2 months. No acute changes on EKG. stress test was done, no evidence to suggest ischemic myocardial changes. Mostly the unstable angina is due to a 7 cm left upper lobe chest mass. Suspected for carcinoma. Pulmonary consult has seen the patient Dr. Rees. Avoided CT- guided biopsy which was done today without any complications. Chest x-ray showed no pneumothorax. Patient is suspected to have COPD exacerbation on presentation. He has severe emphysematous changes on CT pulmonary angiogram with no evidence of pulmonary embolism. He was started on nebulizer treatments , prednisone, Symbicort, azithromycin which he will continue and complete the dose in the outpatient. He will need to follow-up with Dr. Feldman, for the pathology result. And will discuss with him whether to continue with his care or follow-up with the [facility]. Patient states he is doing well. No need for O2 supplementation. Patient has met maximal benefits of hospitalization. Clinically stable for discharge. - Time Spent with Patient Total time spent providing and/or coordinating discharge services: Less than 30 minutes - Quality: VTE Deep Vein Thrombosis/Pulmonary Embolism Present on Admission: No Exam Vital signs: Vital Signs 05/05/18 19:57 05/05/18 20:26 05/05/18 23:38 Temperature 98.2 F 98.2 F Pulse Rate 104 H 104 H 109 H Respiratory Rate 18 18 18 Blood Pressure 109/68 110/69 Pulse Oximetry 94 L 95 05/06/18 03:13 05/06/18 08:00 05/06/18 09:00 Temperature 98.0 F 97.6 F Pulse Rate 91 H 85 75 Respiratory Rate 18 18 Blood Pressure 114/65 120/68 Pulse Oximetry 96 96 05/06/18 10:00 05/06/18 10:15 05/06/18 10:45 Temperature 97.5 F L Pulse Rate 89 84 80 Respiratory Rate 18 18 20 Blood Pressure 113/72 104/63 111/69 Pulse Oximetry 91 L 91 L 92 L Intake & Output 05/05/18 05/06/18 05/06/18 18:59 06:59 18:59 Intake Total 480 / 480 Balance 480 / 480 Intake: Oral 480 / 480 Other: # Voids 1 Narrative: GENERAL: This is a well-nourished, well-developed patient, in no apparent distress. SKIN: Warm and dry HEENT: Normocephalic. Pupils equal round and reactive. Nose without bleeding. Airway patent. NECK: Trachea midline. No JVD. Supple. CARDIOVASCULAR: Regular rate and rhythm without murmurs, gallops, or rubs. RESPIRATORY: Coarse breath sounds throughout GASTROINTESTINAL: Abdomen soft, non-tender, nondistended. Bowel Sounds normoactive x4. MUSCULOSKELETAL: Extremities without clubbing, cyanosis, or edema. NEUROLOGICAL: Awake and alert. Oriented to place, person. Moves all extremities. Normal speech. Results Procedures completed during hospitalization: CT guided Biopsy Labs on day of discharge: Labs from last 24 hours 05/06/18 05/05/18 05:40 21:24 WBC 9.4 RBC 4.53 Hgb 13.2 Hct 39.4 MCV 87.0 MCH 29.2 MCHC 33.6 RDW 14.4 Plt Count 196 MPV 9.1 Total Creatine Kinase 85 Troponin I Less than 0.02 L - Impressions ITS Impressions Chest CTA 05/04/18 17:51 CONCLUSION: 1. No pulmonary emboli. 2. 7.1 cm left upper lobe mass consistent with bronchogenic carcinoma. No appreciable adenopathy. 3. Severe emphysematous changes. Lung Biopsy CT 05/06/18 00:00 CONCLUSION: Uncomplicated CT guided biopsy of left upper lobe mass.. Myocardial Perfusion Scan Nuc Med 05/06/18 00:00 CONCLUSION: 1. No evidence to suggest ischemic myocardial changes. Chest X-Ray 05/06/18 13:00 CONCLUSION: 1. No significant pneumothorax status post left apical lung mass biopsy. Discharge Plan - Discharge Disposition Patient Disposition: 01 Discharge Home - Discharge Condition Condition: Good - Discharge Order Discharge Orders: Discharge Order (Routine); Ordered 05/06/18 Ordered By: Faheem Santamaria - Physicians Team Primary Care Provider: Primary Care Physici,No Attending Provider: Frida Lancaster Other Providers: Gaston Feldman MD
== END 2018-05-06 18:10 | disposition home or self-care (01) ==
LOC: NEPE 16:39 → NEPHCDU 16:39 → NEDA 20:55 → INTOOBSV 20:55 → NEDA 22:28 → NEPHCDU 22:39
PROVIDERS: ADMIT Hospitalist; ATTEND Hospitalist